=== PATIENT | male | born 1940 | race Caucasian/White ===

== ENCOUNTER 2020-07-13 10:13 | Inpatient (IN) ==
[2020-07-13 11:23] LABS: Hematocrit 42 % (42-52); Hemoglobin 14.6 g/dL (14.0-18.0); Mean Corpuscular HGB Conc 35 g/dL (31-36); Mean Corpuscular Hemoglobin 34 pg (27-31); Mean Corpuscular Volume 97 fL (80-94); Mean Platelet Volume 8.5 fL (7.4-10.4); Platelet Count 140 10^3/uL (150-450); Red Blood Count 4.35 10^6 /uL (4.18-5.48); Red Cell Distribution Width 14 % (10-15); White Blood Count 12.4 10^3/uL (3.5-10.8)
[2020-07-13 11:32] LABS: INR 2.31 (0.82-1.09)
[2020-07-13 11:48] LABS: Troponin I 0.01 ng/mL (<0.03)
[2020-07-13 11:51] LABS: ABS Basophils 0.1 10^3/ul (0-0.2); ABS Eosinophils 0.3 10^3/ul (0-0.6); ABS Lymphocytes 2.4 10^3/ul (1.0-4.8); ABS Monocytes 0.9 10^3/ul (0-0.8); ABS Neutrophils 8.7 10^3/ul (1.5-7.7); Eosinophil % 2.8 %; Lymphocyte % 19.4 %; Nucleated Red Blood Cells % 0.1
[2020-07-13] MEDS ORDERED: Dextrose 50% Syringe 50 ml 25 GM/50 ML SYRINGE IV PUSH PRN (12:17)
[2020-07-13 12:22] LABS: ALT 21 U/L (7-52); Albumin/Globulin Ratio 1.1 (1-3); Alkaline Phosphatase 101 U/L (34-104); Anion Gap 10 mmol/L (2-11); BUN/Creatinine Ratio 17.6 (8-20); Blood Urea Nitrogen 22 mg/dL (6-24); CO2 Carbon Dioxide 25 mmol/L (22-32); Calcium 9.4 mg/dL (8.6-10.3); Chloride 101 mmol/L (101-111); EGFR African American 67.6 (>60); EGFR Non-African American 55.9 (>60); Globulin 3.8 g/dL (2-4); Glucose 225 mg/dL (70-100); Sodium 136 mmol/L (135-145); Total Protein 7.8 g/dL (6.4-8.9)
[2020-07-13] MEDS ORDERED: Phytonadione Oral Solution 5 MG/25 ML UDC PO ONE ×2 (12:31→17:23)
[2020-07-13] MEDS ORDERED: Morphine 2 MG/ML SYRINGE IV PRN (12:43)
[2020-07-13] MEDS: oxyCODONE/Acetamin 5/325 mg TAB PO PRN ×3 (13:48→21:29)
[2020-07-13] MEDS ORDERED: Perflutren Lipid Microsphere 3 ML VIAL ONE (16:00)
[2020-07-13 16:45] LABS: INR 2.4 (0.82-1.09)
[2020-07-13] MEDS ORDERED: Phytonadione IV (Adult) 10 MG/ML 1 ML AMP IV ONE (17:24)
[2020-07-13] MEDS ORDERED: Phytonadione IV (Adult) 5 MG in NS 0.9% 50 ML 50 ML IV ONE (18:00)
[2020-07-14 06:47] LABS: ABS Basophils 0.1 10^3/ul (0-0.2); ABS Eosinophils 0.2 10^3/ul (0-0.6); ABS Lymphocytes 2.9 10^3/ul (1.0-4.8); ABS Monocytes 1.4 10^3/ul (0-0.8); ABS Neutrophils 8.4 10^3/ul (1.5-7.7); Eosinophil % 1.4 %; Hematocrit 38 % (42-52); Hemoglobin 13.3 g/dL (14.0-18.0); Lymphocyte % 22.2 %; Mean Corpuscular HGB Conc 35 g/dL (31-36); Mean Corpuscular Hemoglobin 34 pg (27-31); Mean Corpuscular Volume 96 fL (80-94); Mean Platelet Volume 8.1 fL (7.4-10.4); Platelet Count 114 10^3/uL (150-450); Red Blood Count 3.92 10^6 /uL (4.18-5.48); Red Cell Distribution Width 14 % (10-15); White Blood Count 12.9 10^3/uL (3.5-10.8)
[2020-07-14 07:03] LABS: INR 1.67 (0.82-1.09)
[2020-07-14 07:19] LABS: BUN/Creatinine Ratio 18.6 (8-20); EGFR African American 85.5 (>60); EGFR Non-African American 70.6 (>60)
[2020-07-14] MEDS ORDERED: Phytonadione SUBCUT/IM Adult 10 MG/ML AMP (IM or SQ not preferred route) SUBCUT ONE (08:30)
[2020-07-14] MEDS: oxyCODONE/Acetamin 5/325 mg TAB PO PRN ×2 (09:15→14:31)
[2020-07-14] MEDS ORDERED: Phytonadione IV (Adult) 2.5 MG in NS 0.9% 50 ML 50 ML IV ONE (11:00)
[2020-07-14 16:18] LABS: INR 1.45 (0.82-1.09)
[2020-07-15 05:01] LABS: ABS Basophils 0.1 10^3/ul (0-0.2); ABS Eosinophils 0.1 10^3/ul (0-0.6); ABS Lymphocytes 2.3 10^3/ul (1.0-4.8); ABS Monocytes 1.4 10^3/ul (0-0.8); ABS Neutrophils 9.8 10^3/ul (1.5-7.7); Eosinophil % 0.9 %; Hematocrit 40 % (42-52); Hemoglobin 13.8 g/dL (14.0-18.0); Mean Corpuscular HGB Conc 35 g/dL (31-36); Mean Corpuscular Hemoglobin 33 pg (27-31); Mean Corpuscular Volume 96 fL (80-94); Mean Platelet Volume 8.6 fL (7.4-10.4); Platelet Count 113 10^3/uL (150-450); Red Blood Count 4.13 10^6 /uL (4.18-5.48); Red Cell Distribution Width 14 % (10-15); White Blood Count 13.8 10^3/uL (3.5-10.8)
[2020-07-15 05:09] LABS: INR 1.33 (0.82-1.09)
[2020-07-15 06:54] LABS: Calcium 9.1 mg/dL (8.6-10.3); Potassium 3.7 mmol/L (3.5-5.0)
[2020-07-15 06:59] LABS: BUN/Creatinine Ratio 14.7 (8-20); EGFR African American 85.5 (>60); EGFR Non-African American 70.6 (>60)
[2020-07-15] MEDS: oxyCODONE/Acetamin 5/325 mg TAB PO PRN (08:33)
[2020-07-15] MEDS ORDERED: fentaNYL 100 mcg/2 ml 50 MCG/ML VIAL ONE ×2 (11:46→14:48)
[2020-07-15] MEDS ORDERED: Midazolam 2 mg/2 ml VIAL 1 mg/ml 2 ml VIAL (2 mg) ONE (11:46)
[2020-07-15] MEDS ORDERED: Buffered Lidocaine 1% SYRIN 1 ml INTRADERM ONE (11:47)
[2020-07-15] MEDS ORDERED: Famotidine IV 10 MG/ML 2 ml VIAL (20 mg) IV ONE (11:47)
[2020-07-15] MEDS ORDERED: Lactated Ringers 1000 ml BAG 1,000 ML IV SCH (12:00)
[2020-07-15] MEDS ORDERED: ceFAZolin 2 GM PREMIX 2 GM/50 ML BAG ONE (13:25)
[2020-07-15] MEDS ORDERED: Etomidate 20 mg/10 ml 2 MG/ML 10 ml VIAL ONE (14:00)
[2020-07-15] MEDS ORDERED: Rocuronium 50 mg VIAL 10 mg/ml 5 ml VIAL (50 mg) ONE ×2 (14:09→14:53)
[2020-07-15] MEDS ORDERED: Ondansetron 4 mg VIAL 2 MG/ML 2 ml VIAL ONE (14:53)
[2020-07-15] MEDS ORDERED: Dexamethasone IV 4 MG/ML VIAL 1 ml VIAL ONE (14:53)
[2020-07-15] MEDS ORDERED: DiMENhydriNATE IV 50 mg/ml 1 ml VIAL IV PUSH PRN (15:05)
[2020-07-15] MEDS ORDERED: fentaNYL 100 mcg/2 ml 50 MCG/ML VIAL IV PRN (15:05)
[2020-07-15] MEDS ORDERED: Naloxone 0.4 mg VIAL 0.4 mg/ml 1 ml VIAL IV PRN (15:05)
[2020-07-15 18:23] LABS: Hematocrit 37 % (42-52); Hemoglobin 12.7 g/dL (14.0-18.0)
[2020-07-15 18:50] LABS: Urine Appearance Clear; Urine Bilirubin Negative (Negative); Urine Blood Negative (Negative); Urine Color Yellow; Urine Glucose 2+(150 mg/dL) (Negative); Urine Ketones 1+ (Negative); Urine Nitrite Negative (Negative); Urine Protein 1+(30 mg/dL) (Negative); Urine Specific Gravity 1.026 (1.010-1.030); Urine Urobilinogen Negative (Negative)
[2020-07-15 18:54] LABS: Urine Bacteria Absent (Absent); Urine Red Blood Cell 1+(3-5/hpf) (Absent); Urine Squamous Epithelial Cell Present (Absent); Urine White Blood Cell Trace(0-5/hpf) (Absent)
[2020-07-15] MEDS: ceFAZolin 1 GM* X 3 DOSES POST-OP Q8H (AddVan) IVPB SCH (23:01)
[2020-07-16 04:26] LABS: ABS Lymphocytes 1.9 10^3/ul (1.0-4.8); ABS Monocytes 0.9 10^3/ul (0-0.8); ABS Neutrophils 14.8 10^3/ul (1.5-7.7); Hematocrit 33 % (42-52); Hemoglobin 11.7 g/dL (14.0-18.0); Lymphocyte % 10.6 %; Mean Corpuscular HGB Conc 35 g/dL (31-36); Mean Corpuscular Hemoglobin 34 pg (27-31); Mean Corpuscular Volume 95 fL (80-94); Mean Platelet Volume 8.2 fL (7.4-10.4); Platelet Count 123 10^3/uL (150-450); Red Cell Distribution Width 14 % (10-15); White Blood Count 17.7 10^3/uL (3.5-10.8)
[2020-07-16] MEDS: oxyCODONE/Acetamin 5/325 mg TAB PO PRN ×3 (04:30→17:20)
[2020-07-16 04:33] LABS: INR 1.36 (0.82-1.09)
[2020-07-16] MEDS: ceFAZolin 1 GM* X 3 DOSES POST-OP Q8H (AddVan) IVPB SCH ×2 (06:11→15:00)
[2020-07-16] MEDS ORDERED: Magnesium Hydroxide LIQ 30 ML UDC PO PRN (11:22)
[2020-07-16] MEDS: Nystatin TOP POWDER 15 GM BTL TOPICAL SCH ×2 (12:49→21:16)
[2020-07-16] MEDS: Lactulose 30 ml UDC PO SCH ×2 (15:00→21:12)
[2020-07-16] MEDS ORDERED: Senna TAB 8.6 mg TAB PO PRN (17:40)
[2020-07-16] MEDS: Insulin GLARGINE 100 un/ml 10 ml VIAL SUBCUT SCH (18:10)
[2020-07-17] MEDS: oxyCODONE/Acetamin 5/325 mg TAB PO PRN ×2 (02:03→10:58)
[2020-07-17 05:13] LABS: ABS Lymphocytes 1.9 10^3/ul (1.0-4.8); ABS Monocytes 1.4 10^3/ul (0-0.8); ABS Neutrophils 18.4 10^3/ul (1.5-7.7); Hematocrit 32 % (42-52); Lymphocyte % 8.7 %; Mean Corpuscular HGB Conc 35 g/dL (31-36); Mean Corpuscular Hemoglobin 34 pg (27-31); Mean Corpuscular Volume 97 fL (80-94); Mean Platelet Volume 8.5 fL (7.4-10.4); Platelet Count 133 10^3/uL (150-450); Red Blood Count 3.28 10^6 /uL (4.18-5.48); Red Cell Distribution Width 15 % (10-15); White Blood Count 21.8 10^3/uL (3.5-10.8)
[2020-07-17 05:15] LABS: INR 1.49 (0.82-1.09)
[2020-07-17 05:31] LABS: BUN/Creatinine Ratio 28.1 (8-20); Calcium 8.9 mg/dL (8.6-10.3); EGFR African American 70.2 (>60); Potassium 3.9 mmol/L (3.5-5.0)
[2020-07-17] MEDS: Lactulose 30 ml UDC PO SCH (08:05)
[2020-07-17] MEDS: Nystatin TOP POWDER 15 GM BTL TOPICAL SCH ×2 (08:08→22:29)
[2020-07-17] MEDS ORDERED: Lactulose 30 ml UDC PO PRN (12:10)
[2020-07-17] MEDS: Insulin GLARGINE 100 un/ml 10 ml VIAL SUBCUT SCH (17:45)
[2020-07-18 01:49] LABS: Urine Appearance Clear; Urine Bilirubin Negative (Negative); Urine Blood Negative (Negative); Urine Color Yellow; Urine Glucose Negative (Negative); Urine Ketones Negative (Negative); Urine Nitrite Negative (Negative); Urine Protein Negative (Negative); Urine Specific Gravity 1.011 (1.010-1.030); Urine Urobilinogen Negative (Negative)
[2020-07-18 05:16] LABS: Hematocrit 29 % (42-52); Hemoglobin 10.3 g/dL (14.0-18.0); Mean Corpuscular HGB Conc 35 g/dL (31-36); Mean Corpuscular Hemoglobin 34 pg (27-31); Mean Corpuscular Volume 96 fL (80-94); Platelet Count 141 10^3/uL (150-450); Red Blood Count 3.06 10^6 /uL (4.18-5.48); Red Cell Distribution Width 14 % (10-15); White Blood Count 16.7 10^3/uL (3.5-10.8)
[2020-07-18 05:23] LABS: ABS Lymphocytes 3.3 10^3/ul (1.0-4.8); ABS Monocytes 1.6 10^3/ul (0-0.8); ABS Neutrophils 11.8 10^3/ul (1.5-7.7); Eosinophil % 0.3 %; Lymphocyte % 19.6 %; Nucleated Red Blood Cells % 0.2
[2020-07-18] MEDS: Nystatin TOP POWDER 15 GM BTL TOPICAL SCH (09:12)
[2020-07-18 15:53] VITALS: BP 123/55
[2020-07-18] MEDS ORDERED: GLIMEPIRIDE 2 MG PO SCH (21:00)
[2020-07-19] MEDS ORDERED: SITAGLIPTIN 100 MG PO SCH (09:00)
== END 2020-07-18 16:45 | DRG 481 ==
LOC: ED 10:13 → SSU 12:43
PROVIDERS: ADMIT Internal Medicine; ATTEND Hospitalist

== ENCOUNTER 2021-09-29 02:51 | Inpatient (IN) ==
[2021-09-29 03:56] LABS: ABS Basophils 0.1 10^3/ul (0-0.2); ABS Eosinophils 0.1 10^3/ul (0-0.6); ABS Monocytes 0.9 10^3/ul (0-0.8); ABS Neutrophils 6.3 10^3/ul (1.5-7.7); Eosinophil % 0.9 %; Hematocrit 38 % (42-52); Lymphocyte % 21.2 %; Mean Corpuscular HGB Conc 34 g/dL (31-36); Mean Corpuscular Hemoglobin 34 pg (27-31); Mean Corpuscular Volume 98 fL (80-94); Mean Platelet Volume 7.9 fL (7.4-10.4); Platelet Count 188 10^3/uL (150-450); Red Blood Count 3.88 10^6 /uL (4.18-5.48); Red Cell Distribution Width 14 % (10-15); White Blood Count 9.3 10^3/uL (3.5-10.8)
[2021-09-29 04:08] LABS: ALT 11 U/L (7-52); AST 12 U/L (13-39); Albumin 3.2 g/dL (3.2-5.2); Albumin/Globulin Ratio 0.8 (1-3); Alkaline Phosphatase 119 U/L (35-149); Anion Gap 7 mmol/L (2-11); Blood Urea Nitrogen 20 mg/dL (6-24); CO2 Carbon Dioxide 26 mmol/L (22-32); Calcium 8.9 mg/dL (8.6-10.3); Chloride 102 mmol/L (101-111); Globulin 3.8 g/dL (2-4); Glucose 219 mg/dL (70-100); Potassium 3.8 mmol/L (3.5-5.0); Sodium 135 mmol/L (135-145)
[2021-09-29 04:09] LABS: Troponin I 0.02 ng/mL (<0.03)
[2021-09-29 04:33] LABS: Alcohol, S < 13 mg/dL (<13)
[2021-09-29 05:34] LABS: Activated Partial Thrombo Time 31.2 seconds (26.0-38.0); INR 1.41 (0.86-1.15)
[2021-09-29 05:41] LABS: Urine Appearance Cloudy; Urine Bilirubin Negative (Negative); Urine Blood Negative (Negative); Urine Color Amber; Urine Glucose 1+(50 mg/dL) (Negative); Urine Ketones Trace (Negative); Urine Nitrite Negative (Negative); Urine Protein 1+(30 mg/dL) (Negative); Urine Urobilinogen Positive (Negative)
[2021-09-29 05:49] LABS: Rapid COVID-19 Molecular Undetected (Undetected)
[2021-09-29 05:56] LABS: Urine Benzodiazepine Screen None Detected (None Detect); Urine Cannabinoids Screen None Detected (None Detect); Urine Opiates Screen None Detected (None Detect)
[2021-09-29 05:59] LABS: Urine Bacteria Absent (Absent); Urine Granular Casts Present (Absent); Urine Red Blood Cell 2+(6-10/hpf) (Absent); Urine Renal Epithelial Cells Present (Absent); Urine Squamous Epithelial Cell Present (Absent); Urine White Blood Cell Trace(0-5/hpf) (Absent)
[2021-09-29] MEDS ORDERED: Phytonadione IV (Adult) 10 MG in NS 0.9% 50 ML 50 ML IV ONE (06:25)
[2021-09-29] MEDS ORDERED: PROTHROMBIN COMPLEX CONCENTRATE IV SLOW PU ONE (06:27)
[2021-09-29] MEDS ORDERED: [UNRECOGNIZED DRUG - OTHER] IV SLOW PU ONE (06:27)
[2021-09-29] MEDS ORDERED: levETIRAcetam 1000MG IVPREMIX 1,000 MG/100 ML BAG IVPB ONE (06:28)
[2021-09-29] MEDS ORDERED: hydrALAZINE 20 mg/ml 1 ML Vial IV IV SLOW PU PRN (08:12)
[2021-09-29] MEDS ORDERED: Vancomycin 1,000 MG in NS 0.9% 250 ml 250 ML IVPB ONE (10:34)
[2021-09-29] MEDS ORDERED: Vancomycin 2,000 MG in NS 0.9% 500 ml BAG 500 ML IVPB ONE (11:00)
[2021-09-29] MEDS ORDERED: Vancomycin per Pharmacy 1 EA NOTE FOLLOW UP SCH (11:00)
[2021-09-29] MEDS ORDERED: Cefepime 1 GM in Dextrose 1 GM/50 ML BAG IV SCH (12:00)
[2021-09-29] MEDS ORDERED: Cefepime ADVAN 1 GM in NS 0.9% 50 ML 50 ML IVPB SCH (12:00)
[2021-09-29 12:47] LABS: ABS Basophils 0.1 10^3/ul (0-0.2); ABS Monocytes 1.1 10^3/ul (0-0.8); ABS Neutrophils 6.9 10^3/ul (1.5-7.7); Eosinophil % 0.5 %; Hematocrit 36 % (42-52); Hemoglobin 12.2 g/dL (14.0-18.0); Lymphocyte % 20.1 %; Mean Corpuscular HGB Conc 34 g/dL (31-36); Mean Corpuscular Hemoglobin 33 pg (27-31); Mean Corpuscular Volume 97 fL (80-94); Nucleated Red Blood Cells % 0.2; Platelet Count 212 10^3/uL (150-450); Red Blood Count 3.65 10^6 /uL (4.18-5.48); Red Cell Distribution Width 14 % (10-15); White Blood Count 10.2 10^3/uL (3.5-10.8)
[2021-09-29 12:58] LABS: INR 1.37 (0.86-1.15)
[2021-09-29 13:11] LABS: Blood Urea Nitrogen 19 mg/dL (6-24); CO2 Carbon Dioxide 24 mmol/L (22-32); Calcium 8.3 mg/dL (8.6-10.3); Chloride 104 mmol/L (101-111); Glucose 228 mg/dL (70-100); Sodium 133 mmol/L (135-145)
[2021-09-29 13:19] LABS: Anion Gap 5 mmol/L (2-11)
[2021-09-29] MEDS ORDERED: Insulin GLARGINE 100 un/ml 10 ml VIAL ONE (13:39)
[2021-09-29] MEDS: Insulin GLARGINE 100 un/ml 10 ml VIAL SUBCUT SCH ×2 (13:40→21:06)
[2021-09-29] MEDS ORDERED: Zosyn per Pharmacy NOTE FOLLOW UP SCH ×2 (14:00→15:00)
[2021-09-29] MEDS ORDERED: Acetaminophen IV 1 GM/100ML 100 ML IV ONE (14:00)
[2021-09-29] MEDS: Acetaminophen IV 1 GM/100ML 100 ML IV ONE ×3 (14:01→14:12)
[2021-09-29] MEDS ORDERED: Lactated Ringers 1000 ml BAG 1,000 ML IV SCH (15:00)
[2021-09-29] MEDS ORDERED: Piperacillin/Tazobac ADVAN 3.375 GM in NS 0.9% 100 ml BAG 100 ML IV SCH (18:00)
[2021-09-29] MEDS: Piperacillin/Tazobac ADVAN 3.375 GM in NS 0.9% 100 ml BAG 100 ML IV SCH (20:11)
[2021-09-29] MEDS ORDERED: Insulin GLARGINE 100 un/ml 10 ml VIAL SUBCUT SCH (21:00)
[2021-09-30] MEDS: Piperacillin/Tazobac ADVAN 3.375 GM in NS 0.9% 100 ml BAG 100 ML IV SCH ×3 (03:32→20:13)
[2021-09-30 04:44] LABS: ABS Basophils 0.1 10^3/ul (0-0.2); ABS Eosinophils 0.2 10^3/ul (0-0.6); ABS Lymphocytes 1.6 10^3/ul (1.0-4.8); ABS Monocytes 0.8 10^3/ul (0-0.8); Eosinophil % 2.4 %; Hematocrit 37 % (42-52); Hemoglobin 12.5 g/dL (14.0-18.0); Mean Corpuscular HGB Conc 34 g/dL (31-36); Mean Corpuscular Hemoglobin 33 pg (27-31); Mean Corpuscular Volume 98 fL (80-94); Mean Platelet Volume 7.4 fL (7.4-10.4); Platelet Count 192 10^3/uL (150-450); Red Blood Count 3.76 10^6 /uL (4.18-5.48); Red Cell Distribution Width 14 % (10-15); White Blood Count 8.7 10^3/uL (3.5-10.8)
[2021-09-30 04:51] LABS: INR 1.35 (0.86-1.15)
[2021-09-30 04:59] LABS: ALT 10 U/L (7-52); Albumin/Globulin Ratio 0.8 (1-3); Alkaline Phosphatase 106 U/L (35-149); Blood Urea Nitrogen 17 mg/dL (6-24); CO2 Carbon Dioxide 24 mmol/L (22-32); Calcium 8.6 mg/dL (8.6-10.3); Chloride 106 mmol/L (101-111); Globulin 3.8 g/dL (2-4); Glucose 163 mg/dL (70-100); Sodium 135 mmol/L (135-145); Total Protein 6.8 g/dL (6.4-8.9)
[2021-09-30 05:07] LABS: Anion Gap 5 mmol/L (2-11)
[2021-09-30 06:23] LABS: Magnesium 1.8 mg/dL (1.9-2.7); Phosphorus 3.2 mg/dL (2.5-5.0)
[2021-09-30] MEDS: Magnesium Sulfate 2 gm BAG 2 GM/50 ML BAG IVPB ONE ×2 (07:28→07:32)
[2021-09-30] MEDS ORDERED: Magnesium Sulfate IV 3 GM in NS 0.9% 100 ml BAG 100 ML IVPB ONE (08:00)
[2021-09-30] MEDS: levETIRAcetam IV 500 MG in NS 0.9% 100 ml BAG 100 ML IVPB SCH (08:10)
[2021-09-30] MEDS ORDERED: levETIRAcetam 500 MG IVPREMIX 500 MG/100 ML BAG IV SCH (09:00)
[2021-09-30] MEDS ORDERED: Dextrose 50% Syringe 50 ml 25 GM/50 ML SYRINGE IV PUSH PRN (09:10)
[2021-09-30] MEDS ORDERED: Lactated Ringers 1000 ml BAG 1,000 ML IV ONE (11:54)
[2021-09-30 19:14] LABS: TSH Ultra Thyroid Stim Horm 2.05 mcIU/mL (0.34-5.60)
[2021-09-30 19:25] LABS: Vitamin B12 449 pg/mL (180-914)
[2021-09-30] MEDS: Insulin GLARGINE 100 un/ml 10 ml VIAL SUBCUT SCH (20:51)
[2021-09-30 21:20] LABS: Hematocrit 32 % (42-52); Hemoglobin 11.1 g/dL (14.0-18.0)
[2021-09-30] MEDS: levETIRAcetam 500 MG IVPREMIX 500 MG/100 ML BAG IVPB SCH (21:59)
[2021-10-01] MEDS: levETIRAcetam IV 500 MG in NS 0.9% 100 ml BAG 100 ML IVPB SCH (01:30)
[2021-10-01] MEDS: Piperacillin/Tazobac ADVAN 3.375 GM in NS 0.9% 100 ml BAG 100 ML IV SCH ×3 (03:12→20:23)
[2021-10-01 05:35] LABS: ABS Basophils 0.1 10^3/ul (0-0.2); ABS Eosinophils 0.2 10^3/ul (0-0.6); ABS Lymphocytes 1.3 10^3/ul (1.0-4.8); ABS Monocytes 0.7 10^3/ul (0-0.8); ABS Neutrophils 6.5 10^3/ul (1.5-7.7); Eosinophil % 2.2 %; Hematocrit 30 % (42-52); Hemoglobin 10.3 g/dL (14.0-18.0); Lymphocyte % 14.9 %; Mean Corpuscular HGB Conc 34 g/dL (31-36); Mean Corpuscular Hemoglobin 33 pg (27-31); Mean Corpuscular Volume 98 fL (80-94); Mean Platelet Volume 7.5 fL (7.4-10.4); Platelet Count 174 10^3/uL (150-450); Red Cell Distribution Width 14 % (10-15); White Blood Count 8.8 10^3/uL (3.5-10.8)
[2021-10-01 05:43] LABS: INR 1.47 (0.86-1.15)
[2021-10-01 05:51] LABS: Albumin 2.5 g/dL (3.2-5.2); Albumin/Globulin Ratio 0.8 (1-3); Calcium 8.1 mg/dL (8.6-10.3); Globulin 3.3 g/dL (2-4); Potassium 3.7 mmol/L (3.5-5.0); Total Bilirubin 0.9 mg/dL (0.2-1.0); Total Protein 5.8 g/dL (6.4-8.9)
[2021-10-01] MEDS: Pantoprazole VIAL 40 MG VIAL IV SCH ×2 (08:53→20:24)
[2021-10-01] MEDS: levETIRAcetam 500 MG IVPREMIX 500 MG/100 ML BAG IVPB SCH ×2 (08:53→22:20)
[2021-10-01 11:04] LABS: Hematocrit 30 % (42-52); Mean Corpuscular HGB Conc 33 g/dL (31-36); Mean Corpuscular Hemoglobin 33 pg (27-31); Mean Corpuscular Volume 100 fL (80-94); Mean Platelet Volume 7.5 fL (7.4-10.4); Platelet Count 147 10^3/uL (150-450); Red Cell Distribution Width 14 % (10-15); White Blood Count 8.3 10^3/uL (3.5-10.8)
[2021-10-01] MEDS ORDERED: Midazolam 10 mg/10 ml VIAL 1 mg/ml 10 ml VIAL (10 mg) ONE (11:44)
[2021-10-01] MEDS ORDERED: fentaNYL 100 mcg/2 ml 50 MCG/ML VIAL ONE (11:44)
[2021-10-01 19:34] LABS: Hematocrit 30 % (42-52); Hemoglobin 10.1 g/dL (14.0-18.0); Mean Corpuscular HGB Conc 34 g/dL (31-36); Mean Corpuscular Hemoglobin 34 pg (27-31); Mean Corpuscular Volume 100 fL (80-94); Mean Platelet Volume 7.6 fL (7.4-10.4); Platelet Count 157 10^3/uL (150-450); Red Cell Distribution Width 14 % (10-15); White Blood Count 8.5 10^3/uL (3.5-10.8)
[2021-10-01] MEDS: Insulin GLARGINE 100 un/ml 10 ml VIAL SUBCUT SCH (20:22)
[2021-10-02] MEDS: Piperacillin/Tazobac ADVAN 3.375 GM in NS 0.9% 100 ml BAG 100 ML IV SCH ×3 (03:25→22:30)
[2021-10-02 03:29] LABS: ABS Basophils 0.1 10^3/ul (0-0.2); ABS Eosinophils 0.3 10^3/ul (0-0.6); ABS Lymphocytes 1.4 10^3/ul (1.0-4.8); ABS Monocytes 0.8 10^3/ul (0-0.8); ABS Neutrophils 5.7 10^3/ul (1.5-7.7); Eosinophil % 4.2 %; Hematocrit 31 % (42-52); Hemoglobin 10.6 g/dL (14.0-18.0); Lymphocyte % 16.4 %; Mean Corpuscular HGB Conc 34 g/dL (31-36); Mean Corpuscular Hemoglobin 34 pg (27-31); Mean Corpuscular Volume 99 fL (80-94); Mean Platelet Volume 7.7 fL (7.4-10.4); Platelet Count 194 10^3/uL (150-450); Red Blood Count 3.15 10^6 /uL (4.18-5.48); Red Cell Distribution Width 14 % (10-15); White Blood Count 8.3 10^3/uL (3.5-10.8)
[2021-10-02 03:43] LABS: Calcium 8.5 mg/dL (8.6-10.3)
[2021-10-02] MEDS: Pantoprazole VIAL 40 MG VIAL IV SCH ×2 (08:10→22:00)
[2021-10-02] MEDS: levETIRAcetam 500 MG IVPREMIX 500 MG/100 ML BAG IVPB SCH ×2 (08:10→22:37)
[2021-10-02 14:35] LABS: RPR Nonreactive (Nonreactive)
[2021-10-02] MEDS: Insulin GLARGINE 100 un/ml 10 ml VIAL SUBCUT SCH (22:34)
[2021-10-03] MEDS: Piperacillin/Tazobac ADVAN 3.375 GM in NS 0.9% 100 ml BAG 100 ML IV SCH ×3 (03:48→21:29)
[2021-10-03] MEDS: Pantoprazole VIAL 40 MG VIAL IV SCH ×2 (08:13→20:47)
[2021-10-03] MEDS: levETIRAcetam 500 MG IVPREMIX 500 MG/100 ML BAG IVPB SCH ×2 (08:32→20:47)
[2021-10-03] MEDS ORDERED: Insulin GLARGINE 100 un/ml 10 ml VIAL SUBCUT SCH (21:00)
[2021-10-04] MEDS: Piperacillin/Tazobac ADVAN 3.375 GM in NS 0.9% 100 ml BAG 100 ML IV SCH (04:25)
[2021-10-04 05:42] LABS: Calcium 8.7 mg/dL (8.6-10.3); Magnesium 1.9 mg/dL (1.9-2.7); Potassium 3.7 mmol/L (3.5-5.0)
[2021-10-04] MEDS: levETIRAcetam 500 MG IVPREMIX 500 MG/100 ML BAG IVPB SCH (08:27)
[2021-10-04 15:59] LABS: Rapid COVID-19 Molecular Undetected (Undetected)
[2021-10-04 16:31] LABS: T.Pallidum TP-PA Negative (Negative)
[2021-10-04] MEDS ORDERED: Insulin GLARGINE 100 un/ml 10 ml VIAL SUBCUT SCH (21:00)
[2021-10-05 12:08] VITALS: BP 160/65
== END 2021-10-05 14:25 | DRG 949 ==
LOC: ED 02:51 → SUATTDRO 06:54 → EDHOLD 06:54 → ICU 10:26 → MEDTELE 10-02 13:35
PROVIDERS: ADMIT Internal Medicine; ATTEND Internal Medicine

== ENCOUNTER 2021-12-31 04:25 | Inpatient (IN) ==
[2021-12-31] MEDS ORDERED: Ondansetron 4 mg VIAL 2 MG/ML 2 ml VIAL IV PRN (05:32)
[2021-12-31] MEDS ORDERED: Magnesium Hydroxide LIQ 30 ML UDC PO PRN (05:32)
[2021-12-31] MEDS ORDERED: Dextrose 50% Syringe 50 ml 25 GM/50 ML SYRINGE IV PUSH PRN (05:35)
[2021-12-31] MEDS: Enoxaparin 30 MG/0.3 ML SYR SUBCUT SCH (05:53)
[2021-12-31 05:57] LABS: ABS Eosinophils 0.2 10^3/ul (0-0.6); ABS Lymphocytes 2.4 10^3/ul (1.0-4.8); ABS Neutrophils 5.7 10^3/ul (1.5-7.7); Eosinophil % 1.9 %; Hematocrit 38 % (42-52); Hemoglobin 12.9 g/dL (14.0-18.0); Lymphocyte % 26.1 %; Mean Corpuscular HGB Conc 34 g/dL (31-36); Mean Corpuscular Hemoglobin 32 pg (27-31); Mean Corpuscular Volume 93 fL (80-94); Mean Platelet Volume 7.6 fL (7.4-10.4); Nucleated Red Blood Cells % 0.1; Platelet Count 159 10^3/uL (150-450); Red Blood Count 4.05 10^6 /uL (4.18-5.48); Red Cell Distribution Width 14 % (10-15); White Blood Count 9.3 10^3/uL (3.5-10.8)
[2021-12-31] MEDS ORDERED: Lactated Ringers 1000 ml BAG 1,000 ML IV SCH (06:00)
[2021-12-31 06:08] LABS: Urine Creatinine Concentration 108.44 mg/dL
[2021-12-31 06:14] LABS: Albumin 3.6 g/dL (3.2-5.2); C Reactive Protein 6.45 mg/L (<8.01); Calcium 9.4 mg/dL (8.6-10.3); Globulin 3.7 g/dL (2-4); Potassium 4.3 mmol/L (3.5-5.0); Total Bilirubin 0.6 mg/dL (0.2-1.0); Total Protein 7.3 g/dL (6.4-8.9)
[2021-12-31] MEDS: Insulin GLARGINE 100 un/ml 10 ml VIAL SUBCUT SCH (21:01)
[2022-01-01 04:21] LABS: ABS Basophils 0.1 10^3/ul (0-0.2); ABS Eosinophils 0.3 10^3/ul (0-0.6); ABS Lymphocytes 2.5 10^3/ul (1.0-4.8); ABS Monocytes 0.7 10^3/ul (0-0.8); ABS Neutrophils 4.5 10^3/ul (1.5-7.7); Eosinophil % 3.4 %; Hematocrit 38 % (42-52); Mean Corpuscular HGB Conc 34 g/dL (31-36); Mean Corpuscular Hemoglobin 32 pg (27-31); Mean Corpuscular Volume 95 fL (80-94); Mean Platelet Volume 7.7 fL (7.4-10.4); Nucleated Red Blood Cells % 0.1; Platelet Count 140 10^3/uL (150-450); Red Blood Count 4.03 10^6 /uL (4.18-5.48); Red Cell Distribution Width 15 % (10-15); White Blood Count 8.1 10^3/uL (3.5-10.8)
[2022-01-01 04:38] LABS: Potassium 4.3 mmol/L (3.5-5.0); eGFR CKD-EPI 64.7 (>60)
[2022-01-01] MEDS: Enoxaparin 30 MG/0.3 ML SYR SUBCUT SCH (05:04)
[2022-01-01] MEDS: cefTRIAXone 1 gm/50 mL NS BAG 1 GM/50 ML BAG IVPB SCH (05:05)
[2022-01-01] MEDS: Insulin GLARGINE 100 un/ml 10 ml VIAL SUBCUT SCH (22:21)
[2022-01-02] MEDS: Enoxaparin 30 MG/0.3 ML SYR SUBCUT SCH (05:21)
[2022-01-02] MEDS: cefTRIAXone 1 gm/50 mL NS BAG 1 GM/50 ML BAG IVPB SCH (05:21)
[2022-01-02 05:56] LABS: ABS Basophils 0.1 10^3/ul (0-0.2); ABS Eosinophils 0.3 10^3/ul (0-0.6); ABS Monocytes 0.8 10^3/ul (0-0.8); ABS Neutrophils 5.2 10^3/ul (1.5-7.7); Eosinophil % 3.2 %; Hematocrit 38 % (42-52); Lymphocyte % 31.9 %; Mean Corpuscular HGB Conc 35 g/dL (31-36); Mean Corpuscular Hemoglobin 33 pg (27-31); Mean Corpuscular Volume 94 fL (80-94); Platelet Count 145 10^3/uL (150-450); Red Cell Distribution Width 15 % (10-15); White Blood Count 9.4 10^3/uL (3.5-10.8)
[2022-01-02 06:24] LABS: C Reactive Protein 14.97 mg/L (<8.01); Calcium 9.1 mg/dL (8.6-10.3); Magnesium 2.2 mg/dL (1.9-2.7); Potassium 4.2 mmol/L (3.5-5.0); eGFR CKD-EPI 58.6 (>60)
[2022-01-02] MEDS: Insulin GLARGINE 100 un/ml 10 ml VIAL SUBCUT SCH (21:18)
[2022-01-03] MEDS: Enoxaparin 30 MG/0.3 ML SYR SUBCUT SCH (05:34)
[2022-01-03] MEDS: cefTRIAXone 1 gm/50 mL NS BAG 1 GM/50 ML BAG IVPB SCH (05:35)
[2022-01-03 07:03] LABS: Calcium 8.9 mg/dL (8.6-10.3); Magnesium 2.1 mg/dL (1.9-2.7); Potassium 3.7 mmol/L (3.5-5.0)
[2022-01-03] MEDS: Insulin GLARGINE 100 un/ml 10 ml VIAL SUBCUT SCH (20:51)
[2022-01-04 04:46] LABS: ABS Basophils 0.1 10^3/ul (0-0.2); ABS Eosinophils 0.4 10^3/ul (0-0.6); ABS Monocytes 0.9 10^3/ul (0-0.8); ABS Neutrophils 6.7 10^3/ul (1.5-7.7); Eosinophil % 3.2 %; Hematocrit 35 % (42-52); Lymphocyte % 27.1 %; Mean Corpuscular HGB Conc 35 g/dL (31-36); Mean Corpuscular Hemoglobin 33 pg (27-31); Mean Corpuscular Volume 95 fL (80-94); Mean Platelet Volume 7.9 fL (7.4-10.4); Platelet Count 140 10^3/uL (150-450); Red Blood Count 3.67 10^6 /uL (4.18-5.48); Red Cell Distribution Width 15 % (10-15); White Blood Count 11.1 10^3/uL (3.5-10.8)
[2022-01-04 05:07] LABS: Calcium 8.7 mg/dL (8.6-10.3)
[2022-01-04] MEDS: cefTRIAXone 1 gm/50 mL NS BAG 1 GM/50 ML BAG IVPB SCH (05:08)
[2022-01-04] MEDS: Enoxaparin 30 MG/0.3 ML SYR SUBCUT SCH (05:09)
[2022-01-04 05:12] LABS: C Reactive Protein 19.4 mg/L (<8.01); eGFR CKD-EPI 53.9 (>60)
[2022-01-04] MEDS ORDERED: NS 0.9% 1000 ml BAG 1,000 ML IV SCH (11:00)
[2022-01-04] MEDS: Insulin GLARGINE 100 un/ml 10 ml VIAL SUBCUT SCH ×2 (20:32→20:48)
[2022-01-05] MEDS: cefTRIAXone 1 gm/50 mL NS BAG 1 GM/50 ML BAG IVPB SCH (06:07)
[2022-01-05] MEDS: Enoxaparin 30 MG/0.3 ML SYR SUBCUT SCH (06:08)
[2022-01-05] MEDS ORDERED: Lorazepam PYXIS KEY PRN (14:29)
[2022-01-05] MEDS ORDERED: LORazepam 2 mg VIAL 1 ml IV PUSH PRN (14:29)
[2022-01-05] MEDS ORDERED: LORazepam 2 mg VIAL 1 ml IM PRN (17:52)
[2022-01-06] MEDS: Insulin GLARGINE 100 un/ml 10 ml VIAL SUBCUT SCH ×2 (01:00→23:30)
[2022-01-06 05:27] LABS: ABS Basophils 0.1 10^3/ul (0-0.2); ABS Eosinophils 0.2 10^3/ul (0-0.6); ABS Monocytes 0.7 10^3/ul (0-0.8); ABS Neutrophils 4.2 10^3/ul (1.5-7.7); Eosinophil % 3.3 %; Hematocrit 35 % (42-52); Hemoglobin 12.1 g/dL (14.0-18.0); Lymphocyte % 27.7 %; Mean Corpuscular HGB Conc 34 g/dL (31-36); Mean Corpuscular Hemoglobin 32 pg (27-31); Mean Corpuscular Volume 94 fL (80-94); Mean Platelet Volume 7.7 fL (7.4-10.4); Platelet Count 145 10^3/uL (150-450); Red Blood Count 3.77 10^6 /uL (4.18-5.48); Red Cell Distribution Width 14 % (10-15); White Blood Count 7.2 10^3/uL (3.5-10.8)
[2022-01-06 05:42] LABS: Potassium 3.7 mmol/L (3.5-5.0); eGFR CKD-EPI 56.9 (>60)
[2022-01-06] MEDS: Enoxaparin 30 MG/0.3 ML SYR SUBCUT SCH (06:12)
[2022-01-06] MEDS ORDERED: Haloperidol 5 mg/ml SDV IV/IM 5 MG/ML AMP IV SLOW PU SCH (09:00)
[2022-01-06] MEDS ORDERED: Haloperidol 5 mg/ml SDV IV/IM 5 MG/ML AMP IM SCH (09:00)
[2022-01-07] MEDS: Enoxaparin 30 MG/0.3 ML SYR SUBCUT SCH (05:30)
[2022-01-08] MEDS: Insulin GLARGINE 100 un/ml 10 ml VIAL SUBCUT SCH ×2 (03:00→21:49)
[2022-01-08] MEDS: Enoxaparin 30 MG/0.3 ML SYR SUBCUT SCH (05:51)
[2022-01-08 06:51] LABS: ABS Basophils 0.1 10^3/ul (0-0.2); ABS Eosinophils 0.2 10^3/ul (0-0.6); ABS Lymphocytes 2.2 10^3/ul (1.0-4.8); ABS Monocytes 0.6 10^3/ul (0-0.8); Eosinophil % 2.8 %; Hematocrit 39 % (42-52); Hemoglobin 13.3 g/dL (14.0-18.0); Lymphocyte % 27.3 %; Mean Corpuscular HGB Conc 34 g/dL (31-36); Mean Corpuscular Hemoglobin 32 pg (27-31); Mean Corpuscular Volume 94 fL (80-94); Mean Platelet Volume 7.8 fL (7.4-10.4); Nucleated Red Blood Cells % 0.1; Platelet Count 165 10^3/uL (150-450); Red Blood Count 4.14 10^6 /uL (4.18-5.48); Red Cell Distribution Width 15 % (10-15); White Blood Count 8.1 10^3/uL (3.5-10.8)
[2022-01-08 07:08] LABS: Calcium 9.2 mg/dL (8.6-10.3); Potassium 3.8 mmol/L (3.5-5.0)
[2022-01-09] MEDS: Enoxaparin 30 MG/0.3 ML SYR SUBCUT SCH (06:16)
[2022-01-09] MEDS: Insulin GLARGINE 100 un/ml 10 ml VIAL SUBCUT SCH (20:51)
[2022-01-10] MEDS: Enoxaparin 30 MG/0.3 ML SYR SUBCUT SCH (05:30)
[2022-01-10] MEDS: Insulin GLARGINE 100 un/ml 10 ml VIAL SUBCUT SCH (22:01)
[2022-01-11] MEDS: Enoxaparin 30 MG/0.3 ML SYR SUBCUT SCH (05:27)
[2022-01-11] MEDS: Insulin GLARGINE 100 un/ml 10 ml VIAL SUBCUT SCH (20:21)
[2022-01-12] MEDS: Enoxaparin 30 MG/0.3 ML SYR SUBCUT SCH (05:48)
[2022-01-12] MEDS: Insulin GLARGINE 100 un/ml 10 ml VIAL SUBCUT SCH (20:51)
[2022-01-13] MEDS: Enoxaparin 30 MG/0.3 ML SYR SUBCUT SCH (05:44)
[2022-01-13] MEDS: Insulin GLARGINE 100 un/ml 10 ml VIAL SUBCUT SCH (20:20)
[2022-01-14] MEDS: Enoxaparin 30 MG/0.3 ML SYR SUBCUT SCH (06:05)
[2022-01-14] MEDS: Insulin GLARGINE 100 un/ml 10 ml VIAL SUBCUT SCH (21:15)
[2022-01-15] MEDS: Enoxaparin 30 MG/0.3 ML SYR SUBCUT SCH (06:27)
[2022-01-15] MEDS: Insulin GLARGINE 100 un/ml 10 ml VIAL SUBCUT SCH (21:26)
[2022-01-16] MEDS: Enoxaparin 30 MG/0.3 ML SYR SUBCUT SCH (06:07)
[2022-01-16] MEDS: Insulin GLARGINE 100 un/ml 10 ml VIAL SUBCUT SCH (20:24)
[2022-01-17] MEDS: Enoxaparin 30 MG/0.3 ML SYR SUBCUT SCH (05:44)
[2022-01-17 12:11] VITALS: BP 128/60
[2022-01-17 13:31] LABS: Rapid COVID-19 Molecular Undetected (Undetected)
== END 2022-01-17 13:57 | DRG 71 ==
LOC: ED 04:25 → MEDTELE 04:25 → SUATTDRO 11:07 → SSU 01-08 07:59
PROVIDERS: ADMIT Internal Medicine; ATTEND Internal Medicine